=== PATIENT | male | born 1985 | race Caucasian/White ===

== ENCOUNTER 2016-02-29 23:02 | Emergency (ER) | payer MEDICAID ==
[2016-02-29] MEDS ORDERED: LORazepam 2 MG/ML INJ IVP ONE ×2 (23:10→23:42)
[2016-02-29] MEDS ORDERED: MVI WITH VIT K 10 ML, FOLIC ACID 2.5 MG, THIAMINE HCL 100 MG, MAGNESIUM SULFATE 2 GM in... IV ONE (23:10)
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
[2016-03-01 00:32] LABS: ANION GAP 18 mEq/L (8-16); CALCIUM 8.7 mg/dL (8.5-10.4); CARBON DIOXIDE 22 mEq/l (22-31); CHLORIDE 107 mEq/L (97-110); ETHANOL SERUM 178 mg/dL (0-10); GLOMERULAR FILTRATION RATE > 60; GLUCOSE 101 mg/dL (70-100); POTASSIUM 4.5 mEq/L (3.5-5.2); SODIUM 147 mEq/L (134-144)
[2016-03-01 01:01] LABS: % IMMATURE GRANULYOCYTES 0.6 % (0.0-1.1); ABSOLUTE IMMATURE GRANULOCYTES 0.05 10^3/uL (0.00-0.10); ADD DIFF? NO; ADD MORPH? NO; ADD SCAN? NO; ATYPICAL LYMPHOCYTE FLAG 20 (0-99); FRAGMENT RBC FLAG 0 (0-99); HEMATOCRIT 40.1 % (40.0-51.0); HEMOGLOBIN 13.9 g/dL (13.7-17.5); LEFT SHIFT FLG 0 (0-99); LIPEMIA HEMOLYSIS FLAG 90 (0-99); MEAN CELL HEMOGLOBIN 28.9 pg (27.9-34.1); MEAN CELL HEMOGLOBIN CONCENTR. 34.7 g/dL (32.4-36.7); MEAN CELL VOLUME 83.4 fL (81.5-99.8); MEAN PLATELET VOLUME 8.7 fL (8.7-11.7); PLATELET CLUMPS FLAG 0 (0-99); PLATELET COUNT 308 10^3/uL (150-400); RED BLOOD CELL COUNT 4.81 10^6/uL (4.40-6.38); RED CELL DISTRIBUTION WIDTH 12.7 % (11.5-15.2)
[2016-03-01] MEDS ORDERED: NS 1,000 ML IV ONE (01:56)
[2016-03-01] MEDS ORDERED: ONDANSETRON 4 MG/2 ML VIAL ONE (01:56)
[2016-03-01] MEDS ORDERED: ONDANSETRON 4 MG/2 ML VIAL IVP ONE (01:56)
[2016-03-01 02:05] VITALS: BP 124/64
[2016-03-01 02:54] VITALS: PULSE 72; RESP 17; TEMP 98.2; O2SAT 94
== END 2016-03-01 02:53 | disposition home or self-care (01) ==
LOC: EDUNIT#
DX: F19.10 Other psychoactive substance abuse, uncomplicated (principal); F17.200 Nicotine dependence, unspecified, uncomplicated
CPT/HCPCS: 80305; 96365; 96366; G0480; J2405; J3411